=== PATIENT | female | born 1995 | race Caucasian/White ===

== ENCOUNTER 2016-09-30 11:27 | Emergency (ER) ==
[2016-09-30 11:31] VITALS: BP 139/77; TEMP 98.2; BMI 31.1
--- NOTE | 2016-09-30 11:45 | ED.PDOC ---
General ED Provider: Dr. ZEESHAN OBRIEN Chief Complaint: Earache Stated Complaint: Left ear is full, some watery drainage. Time Seen by Physician: 11:43 Mode of Arrival: Walk-In Information Source: Patient Nursing and Triage Documentation Reviewed and Agree: Yes EENT Complaint Exam - Ear Complaint/Exam Symptoms Are: Still present Timing: Constant Initial Severity: Mild Current Severity: Mild Character: Reports: Dull pain Aggravating: Reports: None Alleviating: Reports: None Associated Signs and Symptoms: Reports: Discharge. Denies: Ear trauma, Ear swelling, Fever, Hearing loss, Bleeding, Sore throat, Headache, URI symptoms, Foreign body sensation, Rash, Pain to external ear, Pain to external face Related History: Reports: Similar Episode Ear Surgical History: None Vesicles to External Pinna: No Vesicles to Tragus: No TMJ Tenderness: None Mastoid Tenderness: None Tragal Tenderness: None External Canal: Normal Tympanic Membrane: Erythema Differential Diagnoses: Otitis Media Review of Systems - Review Of Systems Constitutional: Reports: No symptoms Eyes: Reports: No symptoms Ears, Nose, Mouth, Throat: Reports: Ear pain, Ear discharge Respiratory: Reports: No symptoms Cardiac: Reports: No symptoms GI: Reports: No symptoms : Reports: No symptoms Musculoskeletal: Reports: No symptoms Skin: Reports: No symptoms Neurological: Reports: No symptoms Endocrine: Reports: No symptoms Hematologic/Lymphatic: Reports: No symptoms All Other Systems: Reviewed and Negative Past Medical History - Past Medical History Previously Healthy: Yes Endocrine: Reports: None Cardiovascular: Reports: None Respiratory: Reports: None Hematological: Reports: None Gastrointestinal: Reports: None Genitourinary: Reports: None Neuro/Psych: Reports: None Musculoskeletal: Reports: None Cancer: Reports: None Last Menstrual Period: LAST MONTH - Surgical History General Surgical History: Reports: Tonsillectomy - Family History Family History: Reports: Unknown - Social History Smoking Status: Former smoker Hx Substance Use: No Alcohol Screening: None Physical Exam - Physical Exam Appearance: Well-appearing, No pain distress, Well-nourished Eyes: DEANNA, EOMI, Conjunctiva clear ENT: TMs Occluded (left ear red, ) Respiratory: Airway patent, Breath sounds clear, Breath sounds equal, Respirations nonlabored Cardiovascular: RRR, Pulses normal, No rub, No murmur GI/: Soft, Nontender, No masses, Bowel sounds normal, No Organomegaly Musculoskeletal: Normal strength, ROM intact, No edema, No calf tenderness Skin: Warm, Dry, Normal color Neurological: Sensation intact, Motor intact, Reflexes intact, Cranial nerves intact, Alert, Oriented Psychiatric: Affect appropriate, Mood appropriate Critical Care Note - Critical Care Note Total Time (mins): 0 Course - Course Vital Signs: Temp Pulse Resp BP Pulse Ox 09/30/16 11:27 98.2 F 87 20 139/77 98 Departure - Departure Time of Disposition: 11:45 Disposition: HOME SELF-CARE Discharge Problem: Otitis media Qualifiers: Otitis media type: serous Chronicity: acute Laterality: left Recurrence: not specified as recurrent Qualifier Code: (H65.02) Acute serous otitis media, left ear Instructions: Otitis Media (ED) Condition: Stable Pt referred to PMD for follow-up: No Additional Instructions: Tylenol prn Take medications with food,. Prescriptions: Amoxicillin/Potassium Clav [Augmentin 500-125 mg Tab] 1 tab PO Q12HR #20 tablet Allergies/Adverse Reactions: Allergies CHALK Adverse Reaction (Uncoded 09/30/16 11:31) Home Medications: Ambulatory Orders Amoxicillin/Potassium Clav [Augmentin 500-125 mg Tab] 1 tab PO Q12HR #20 tablet 09/30/16 Disposition Discussed With: Patient
[2016-09-30] MEDS ORDERED: DECADRON 4 MG/ML SDV IM STA (11:46)
== END 2016-09-30 12:05 | disposition home or self-care (01) ==
LOC: ED 11:27
DX: H65.02 Acute serous otitis media, left ear (principal)
CPT/HCPCS: 96372; 99282

== ENCOUNTER 2016-10-27 21:56 | Emergency (ER) ==
[2016-10-27 21:57] VITALS: BMI 32.0
[2016-10-27 22:10] VITALS: BP 107/73; TEMP 98.7
--- NOTE | 2016-10-27 22:32 | ED.PDOC ---
General ED Provider: Dr. ALMAZ LUQUE-ER Chief Complaint: Fall Stated Complaint: i slipped on tile floor--i hit my knee but it doesnt hurt--i fell on my left thumb and it hurts-- Time Seen by Physician: 21:55 Mode of Arrival: Walk-In Information Source: Patient Exam Limitations: No limitations Nursing and Triage Documentation Reviewed and Agree: Yes Musculoskeletal Complaint Exam - Hand/Wrist Complaint/Exam Location of Pain: Reports: Left, Digit #1 Mechanism of Injury: Reports: Trauma Onset/Duration: today Symptoms Are: Still present Onset of Pain: Reports: Immediate Initial Severity: Mild Current Severity: Mild Location: Reports: Discrete (left thumb) Character: Reports: Dull, Aching, Throbbing Alleviating: Reports: None Aggravating: Reports: Movement Associated Signs and Symptoms: Reports: Swelling, Bruising. Denies: Redness, Fever, Weakness, Numbness, Tingling Hand/Wrist Findings: Present: Swelling, Ecchymosis Tenderness: Present: Metacarpal, Phalanx Compartment Syndrome Risk Factors: Present: Pain. Absent: Paralysis, Pallor, Pulselessness, Paresthesias Differential Diagnoses: Closed Fracture, Sprain, Strain, Tenosynovitis Review of Systems - Review Of Systems Constitutional: Reports: No symptoms Eyes: Reports: No symptoms Ears, Nose, Mouth, Throat: Reports: No symptoms Respiratory: Reports: No symptoms Cardiac: Reports: No symptoms GI: Reports: No symptoms : Reports: No symptoms Musculoskeletal: Reports: No symptoms, Joint pain, Muscle pain Skin: Reports: No symptoms Neurological: Reports: No symptoms Endocrine: Reports: No symptoms Hematologic/Lymphatic: Reports: No symptoms All Other Systems: Reviewed and Negative Past Medical History - Past Medical History Previously Healthy: Yes Endocrine: Reports: None Cardiovascular: Reports: None Respiratory: Reports: None Hematological: Reports: None Gastrointestinal: Reports: None Genitourinary: Reports: None Neuro/Psych: Reports: None Musculoskeletal: Reports: None Cancer: Reports: None Last Menstrual Period: 6 days ago - Surgical History General Surgical History: Reports: Tonsillectomy - Family History Family History: Reports: Unknown - Social History Smoking Status: Former smoker Hx Substance Use: No Alcohol Screening: None Lives: With family - Immunizations Tetanus Shot up to Date: No Physical Exam - Physical Exam Appearance: Well-appearing, No pain distress, Well-nourished Pain Distress: Mild Eyes: DEANNA, EOMI, Conjunctiva clear ENT: Ears normal, Nose normal, Oropharynx normal Neck: Supple Respiratory: Airway patent Cardiovascular: RRR, Pulses normal, No rub, No murmur GI/: Soft, Nontender, No masses, Bowel sounds normal, No Organomegaly Musculoskeletal: Limited ROM Skin: Warm, Dry, Normal color Neurological: Sensation intact, Motor intact, Reflexes intact, Cranial nerves intact, Alert, Oriented Psychiatric: Affect appropriate, Mood appropriate Interpretation - Radiology Interpretation Radiology Interpretation By: Radiologist Radiology Results: Negative Critical Care Note - Critical Care Note Total Time (mins): 0 Course - Course Orders, Labs, Meds: Orders Category Date Time Status Ice Pack [ED APPLY ICE AFFECTED AREA] .ONCE EMERGENCY 10/27/16 22:14 Active Spica splint [ED SPLINT APPLICATION] .ONCE EMERGENCY 10/27/16 22:44 Ordered Ibuprofen Susp [Motrin Susp] MEDS 10/27/16 22:44 Stat 600 mg PO ONCE STA THUMB, LEFT Stat RADS 10/27/16 22:14 Completed Vital Signs: Temp Pulse Resp BP Pulse Ox 10/27/16 21:57 98.7 F 87 20 107/73 96 Departure - Departure Time of Disposition: 22:45 Disposition: HOME SELF-CARE Discharge Problem: Left thumb sprain Qualifiers: Encounter type: initial encounter Sprain of finger site: unspecified site Qualifier Code: (S63.602A) Unspecified sprain of left thumb, initial encounter Instructions: Finger Sprain (ED) Condition: Good Pt referred to PMD for follow-up: Yes Additional Instructions: stay in splint==ice for 12hrs--toradol 10mg qid prn pain #16--reheck with pcp this week if still painful Allergies/Adverse Reactions: Allergies CHALK Adverse Reaction (Uncoded 10/27/16 22:11) Difficulty Breathing Difficulty breathing chalk dust. Home Medications: Ambulatory Orders 1 [No Reported Medications] 10/27/16 Disposition Discussed With: Patient, Family
--- NOTE | 2016-10-27 22:42 | DI ---
Exam: Left thumb three-view History: Trauma and pain Findings / impression: No bony or articular abnormalities of the first digit. Normal exam.
[2016-10-27] MEDS ORDERED: MOTRIN SUSP PO STA (22:44)
== END 2016-10-27 23:00 | disposition home or self-care (01) ==
LOC: ED 21:56
DX: S63.602A Unspecified sprain of left thumb, initial encounter (principal); W01.0XXA Fall on same level from slipping, tripping and stumbling without subsequent striking against object, initial encounter
CPT/HCPCS: 99282

== ENCOUNTER 2016-12-24 13:04 | Emergency (ER) ==
[2016-12-24 13:09] VITALS: BP 145/90; TEMP 98.7; BMI 36.6
--- NOTE | 2016-12-24 13:22 | ED.PDOC ---
General ED Provider: Dr. ARIN GAINES Chief Complaint: Rash Stated Complaint: facial rash appeared approximately 2 hours ago then appeared on right anterior shoulder. Mildly pruritic. No known antigen exposure. Time Seen by Physician: 13:53 Mode of Arrival: Walk-In Information Source: Patient Nursing and Triage Documentation Reviewed and Agree: Yes Skin Complaint Exam - Skin Rash/Itching Complaint/Exam Onset/Duration: 2 hours Symptoms Are: Still present (but not as severe since in ED) Initial Severity: Moderate Current Severity: Mild Location: face and right anterior shoulder Potential Exposures: Reports: Unknown Prior Treatment: none Aggravating: Reports: None Alleviating: Reports: None Skin Findings: Present: Maculae, Papules Differential Diagnoses: Allergic Reaction Review of Systems - Review Of Systems Constitutional: Reports: No symptoms Eyes: Reports: No symptoms Ears, Nose, Mouth, Throat: Reports: No symptoms Respiratory: Reports: No symptoms Cardiac: Reports: No symptoms GI: Reports: No symptoms : Reports: No symptoms Musculoskeletal: Reports: No symptoms Skin: Reports: Rash (mildly pruritic) Neurological: Reports: No symptoms All Other Systems: Reviewed and Negative Past Medical History - Past Medical History Previously Healthy: Yes Endocrine: Reports: None Cardiovascular: Reports: None Respiratory: Reports: None Hematological: Reports: None Gastrointestinal: Reports: None Genitourinary: Reports: None Neuro/Psych: Reports: None Musculoskeletal: Reports: None Cancer: Reports: None Last Menstrual Period: - Surgical History General Surgical History: Reports: Tonsillectomy - Family History Family History: Reports: Unknown - Social History Smoking Status: Former smoker Hx Substance Use: No Alcohol Screening: None Lives: With family - Immunizations Tetanus Shot up to Date: Yes Influenza Vaccine within 12 Months: No Pneumococcal Vaccine up to Date: No Physical Exam - Physical Exam Appearance: Well-appearing, No pain distress, Well-nourished Ill-appearing: None Pain Distress: None Eyes: DEANNA, EOMI, Conjunctiva clear ENT: Ears normal, Nose normal, Oropharynx normal Respiratory: Airway patent, Breath sounds clear, Breath sounds equal, Respirations nonlabored Cardiovascular: RRR, Pulses normal, No rub, No murmur GI/: Soft, Nontender, No masses, Bowel sounds normal, No Organomegaly Musculoskeletal: Normal strength, ROM intact, No edema, No calf tenderness Skin: Warm, Dry, Normal color (multiple tiny macular/papular lesions on face, right anterior shoulder, and across upper back, not well-demarcated) Neurological: Sensation intact, Motor intact, Reflexes intact, Cranial nerves intact, Alert, Oriented Psychiatric: Affect appropriate, Mood appropriate Critical Care Note - Critical Care Note Total Time (mins): 0 Course - Course Vital Signs: Temp Pulse Resp BP Pulse Ox 12/24/16 13:04 98.7 F 74 18 145/90 H 98 Departure - Departure Time of Disposition: 14:05 Disposition: HOME SELF-CARE Discharge Problem: Allergic dermatitis Instructions: Dermatitis (ED) Condition: Good Pt referred to PMD for follow-up: No (See doctor if worsens or no better in 3 days. Benadryl 50 mg po q4-6h prn) Allergies/Adverse Reactions: Allergies CHALK Adverse Reaction (Uncoded 12/24/16 13:09) Difficulty Breathing Difficulty breathing chalk dust. Home Medications: Ambulatory Orders Vit W-Ca,Fe,FA(<1 mg) [ Vitamins] 1 each PO DAILY 12/24/16 Disposition Discussed With: Patient
== END 2016-12-24 14:13 | disposition home or self-care (01) ==
LOC: ED 13:04
DX: L23.9 Allergic contact dermatitis, unspecified cause (principal)
CPT/HCPCS: 99281